=== PATIENT | female | born 1955 | race Caucasian/White ===

== ENCOUNTER → 2017-05-24 | Outpatient (CLI) | payer BC ==
--- NOTE | 2017-05-24 11:39 | REPMRS ---
Patient History The patient states she had a clinical breast exam in 2016.Patient is postmenopausal and is nulliparous. Family history of colorectal cancer in father at age 82. Took hormonal contraceptives for 2 years. Took estrogen for 35 years. Digital Mammo Screening Bilat: May 24, 2017 - Exam #: [id number] Bilateral CC and MLO view(s) were taken. Technologist: Shawanda Amin, Technologist Prior study comparison: May 12, 2016, bilateral digital mammo screening bilat performed at [facility]. May 01, 2015, digital woman screen mammo, performed at [facility]. December 26, 2013, bilateral bilat screen digital mammo, performed at [facility] ([facility]). FINDINGS: There are scattered fibroglandular densities. There has been no change in the appearance of the mammogram from the prior studies. There is a mild amount of scattered fibroglandular density which is fairly symmetric. There is no interval development of dominant mass, architectural distortion, or clustered microcalcification suggestive of malignancy. ASSESSMENT: BI-RADS/ACR category 1 mammogram. Negative. Recommendation Routine screening mammogram in 1 year (for women over age 40). This mammogram was interpreted with the aid of an FDA-approved computer-aided dectection system. Electronically Signed By: Bruno Hensley MD 05/24/17 [id number]
== END ==
LOC: M RAD 10:38
PROVIDERS: ATTEND Family Medicine
DX: Z12.31 Encounter for screening mammogram for malignant neoplasm of breast (principal); Z78.0 Asymptomatic menopausal state; Z92.0 Personal history of contraception

== ENCOUNTER → 2017-10-05 | Outpatient (CLI) | payer BC | LOC: M RAD 09:54 | DX: N18.3 Chronic kidney disease, stage 3 (moderate) (principal); N28.1 Cyst of kidney, acquired | CPT/HCPCS: 76775 ==

== ENCOUNTER → 2018-03-31 | Outpatient (REF) | payer BC | LOC: M LAB REF 12:55 | DX: N28.1 Cyst of kidney, acquired (principal); N39.0 Urinary tract infection, site not specified; N18.3 Chronic kidney disease, stage 3 (moderate) ==

== ENCOUNTER → 2018-10-10 | Outpatient (REF) | payer BC ==
[2018-10-10 14:42] LABS: TOTAL PROTEIN,RANDOM URINE 13.5 MG/DL (0.0-12.0)
== END ==
LOC: M LAB REF 13:24
PROVIDERS: ATTEND Internal Medicine Nephrology
DX: N18.3 Chronic kidney disease, stage 3 (moderate) (principal)

== ENCOUNTER → 2019-08-15 | Outpatient (REF) | payer MEDICARE, BC | LOC: M LAB REF 13:23 | PROVIDERS: ATTEND Nurse Practitioner Family | DX: N39.0 Urinary tract infection, site not specified (principal) ==

== ENCOUNTER → 2021-07-08 | Outpatient (REF) | payer MEDICARE | LOC: M LAB REF 12:55 | PROVIDERS: ATTEND Internal Medicine Nephrology | DX: N18.32 Chronic kidney disease, stage 3b (principal); E83.42 Hypomagnesemia ==

== ENCOUNTER → 2023-08-18 | Outpatient (REF) | payer MEDICARE ==
[2023-08-18 18:15] LABS: BASO % 0.2 % (0.0-1.0); EOS # 0.1 10^3/uL (0.0-0.5); EOS % 0.4 % (0.0-3.0); HEMATOCRIT 46.4 % (36.0-47.0); HEMOGLOBIN 14.2 g/dl (12.0-15.5); LYMPH # 0.5 10^3/uL (1.5-5.0); LYMPH % 3.5 % (24.0-44.0); MEAN CORPUSCULAR HEMOGLOBIN 28.1 pg (27.0-33.0); MEAN CORPUSCULAR HGB CONC 30.6 g/dl (32.0-36.5); MEAN CORPUSCULAR VOLUME 91.7 fl (80.0-96.0); MONO # 0.3 10^3/uL (0.0-0.8); MONO % 2.3 % (2.0-8.0); NEUTROPHILS # 13.2 10^3/uL (1.5-8.5); NEUTROPHILS % 93.2 % (36.0-66.0); PLATELET COUNT, AUTOMATED 284 10^3/uL (150-450); RED BLOOD COUNT 5.06 10^6/uL (4.00-5.40); WHITE BLOOD COUNT 14.1 10^3/uL (4.0-10.0)
[2023-08-18 18:36] LABS: ALBUMIN 3.6 G/DL (3.2-5.2); BILIRUBIN,DIRECT 0.2 MG/DL (<0.4); BILIRUBIN,TOTAL 0.4 MG/DL (0.3-1.2); CALCIUM LEVEL 9.1 MG/DL (8.3-10.6); CREATININE FOR GFR 1.14 MG/DL (0.55-1.30); GLOMERULAR FILTRATION RATE 50.3 (>45); TOTAL PROTEIN 6.9 G/DL (5.7-8.2)
== END ==
LOC: M LAB REF 17:30
PROVIDERS: ATTEND Nurse Practitioner Family
DX: R06.02 Shortness of breath (principal)